=== PATIENT | female | born 1970 | race Caucasian/White ===

== ENCOUNTER 2023-02-26 19:12 | Emergency (ER) | payer OTHER ==
--- NOTE | 2023-02-26 20:15 | ED Physician Documentation ---
History of Present Illness - Stated complaint Stated Complaint: FACIAL NUMBNESS - Chief complaint Chief Complaint: General - History obtained from History obtained from: Patient - Additonal information Additional information: HPI from patient. Patient complains of heaviness across her anterior chest, onset at approximately 6 PM today during light activity (patient was walking into a store).She denies shortness of breath per se, but does note that at its worst (when the chest feels most heavy), she does feel it is difficult to take in a deep breath. At no time was inspiration associated with worsening of the pain. Her chest heaviness has nearly resolved by the time of this evaluation although it is still present, and she longer feels like her breathing is restricted from the heaviness. The chest discomfort/heaviness does not radiate, such as to the neck, back, arms.She did not notice any exacerbating or ameliorating factors for the symptoms; she just has made note of resolution of the symptoms seemingly on their own except, again, for mild, residual chest wall heaviness/pressure. She also had left facial paresthesias ("[id number]") at symptom onset, but this has subsequently resolved.She denies history of similar symptoms. She denies any leg swelling. Denies fever. She has never had a stress test, has never been diagnosed with any cardiac diagnoses. She also notes that she has had 1 to 2 days of urinary frequency and burning with urination. Review of Systems Constitutional: denies: Fever Cardiac: reports: Chest pain / pressure. denies: Palpitations, Pedal edema, Calf pain Respiratory: denies: Dyspnea, Cough, Wheezing GI: reports: Reviewed and negative : reports: Dysuria, Frequency. denies: Hematuria, Now [facility] PAST MEDICAL HISTORY - Past Medical History Past Medical History: No - Present Medications Home Medications: Ambulatory Orders Medication Instructions Recorded Confirmed Nitrofurantoin [Macrobid] 100 mg PO BID #9 cap 02/26/23 Phenazopyridine HCl [Pyridium] 200 mg PO TID PRN #6 tablet 02/26/23 - Allergies Allergies/Adverse Reactions: Allergies Allergy/AdvReac Type Severity Reaction Status Date / Time No Known Drug Allergies Allergy Verified 02/26/23 19:21 - Living Situation Living Arrangement: reports: At home PD ED PE NORMAL - Vitals Vital signs reviewed: Yes - General General: Alert and oriented X 3, No acute distress, Well developed/nourished - Neck Neck: Supple, no meningeal sign - Cardiac Cardiac: RRR, No murmur, No gallop, No rub - Respiratory Respiratory: No respiratory distress, Clear bilaterally - Abdomen Abdomen: Soft, Non tender - Derm Derm: Normal color, Warm and dry - Extremities Extremities: No edema Results - Vitals Vitals: Oxygen O2 Source Room air - EKG (time done) No standard instances EKG releavant findings:: EKG personally interpreted by author of this note. Relevant findings are: Rate: Rate (enter#) (56) Rhythm: NSR [place]: Normal Intervals: Normal IN QRS: Normal Ischemia: Normal ST segments - Labs Labs: Microbiology 02/26/23 20:05 Urine Culture - Preliminary Urine,Clean Catch Escherichia Coli Laboratory Tests 02/26/23 02/26/23 02/26/23 19:29 19:29 19:29 WBC 8.8 RBC 4.80 Hgb 15.5 Hct 44.9 MCV 93.5 MCH 32.3 H MCHC 34.5 RDW 12.2 Plt Count 301 MPV 10.3 Neut # (Auto) 4.2 Lymph # (Auto) 3.8 H [place] # (Auto) 0.6 Eos # (Auto) 0.1 Baso # (Auto) 0.1 Absolute Nucleated RBC 0.00 Nucleated RBC % 0.0 Sodium 137 Potassium 3.5 Chloride 101 Carbon Dioxide 27 Anion Gap 9.0 BUN 13 Creatinine 0.7 Estimated GFR (MDRD) 88 L Glucose 88 Calcium 9.3 Total Bilirubin 0.4 AST 21 ALT 21 Alkaline Phosphatase 77 Troponin I High Sens 3.9 Total Protein 7.6 Albumin 4.5 Globulin 3.1 Albumin/Globulin Ratio 1.5 Lipase 37 Urine Color Urine Clarity Urine pH Ur Specific [place] Urine Protein Urine Glucose (UA) Urine Ketones Urine Occult Blood Urine Nitrite Urine Bilirubin Urine Urobilinogen Ur Leukocyte Esterase Urine RBC Urine WBC Ur Squamous Epith Cells Urine Bacteria Ur Microscopic Review Urine Culture Comments 02/26/23 20:05 WBC RBC Hgb Hct MCV MCH MCHC RDW Plt Count MPV Neut # (Auto) Lymph # (Auto) [place] # (Auto) Eos # (Auto) Baso # (Auto) Absolute Nucleated RBC Nucleated RBC % Sodium Potassium Chloride Carbon Dioxide Anion Gap BUN Creatinine Estimated GFR (MDRD) Glucose Calcium Total Bilirubin AST ALT Alkaline Phosphatase Troponin I High Sens Total Protein Albumin Globulin Albumin/Globulin Ratio Lipase Urine Color STRAW Urine Clarity HAZY Urine pH 6.0 Ur Specific [place] <=1.005 Urine Protein NEGATIVE Urine Glucose (UA) NEGATIVE Urine Ketones NEGATIVE Urine Occult Blood TRACE-INTA Urine Nitrite POSITIVE H Urine Bilirubin NEGATIVE Urine Urobilinogen 0.2 (NORMAL) Ur Leukocyte Esterase SMALL H Urine RBC 0-5 Urine WBC >25 H Ur Squamous Epith Cells RARE Squamous Urine Bacteria Moderate H Ur Microscopic Review INDICATED Urine Culture Comments INDICATED - Rads (name of study) chest xray Relevant Findings:: Prelim report reviewed, See rad report PD Medical Decision Making - ED course Complexity details: reviewed results, re-evaluated patient, considered differential, d/w patient ED course: UA is strongly consistent with UTI, and macrobid is prescribed with first dose given in ED along with pyridium. There were no concerning nor diagnostic findings on the blood tests including hs-cTn, and CXR does not evidence an acute process. Results d/w patient. Cause of her dyspnea, chest heaviness, and facial paresthesias is unclear at this time. Her dysuria and frequency are, of course, attributable to the UTI. I recommended to patient that she seek f/o with PMD within one week to reevaluate all of her symptoms. Return precautions discussed. Departure - Departure Disposition: 01 Home, Self Care Clinical Impression: Urinary tract infection Qualifiers: Urinary tract infection type: acute cystitis Hematuria presence: without hematuria Qualified Code(s): N30.00 - Acute cystitis without hematuria Chest pain Qualifiers: Chest pain type: unspecified Qualified Code(s): R07.9 - Chest pain, unspecified Condition: Good Instructions: ED Chest Pain Atypical Unkn Cause, ED UTI Cystitis Female Prescriptions: Nitrofurantoin [Macrobid] 100 mg PO BID #9 cap Phenazopyridine HCl [Pyridium] 200 mg PO TID PRN #6 tablet PRN Reason: dysuria Comments: There were no abnormalities on tonight's tests, including your blood tests (which included a cardiac enzyme test), chest x-ray, EKG. The only exception is the urinalysis, which is consistent with a urinary tract infection. For this, I have given you a dose of an antibiotic (Macrobid) as well as a dose of Pyridium (medication that can help with the frequency and burning associated with urinary tract infection) in the emergency department. You also been provided a prescription for both these medications. I have only prescribed Pyridium for two days because, as we discussed, the symptoms of a urinary tract infection should significantly improve and then resolve within no more than 2 to 3 days into the antibiotic. A culture will be performed on the urine sample, and if the culture grows out a bacteria that is resistant to the prescribed antibiotic, you will receive a phone call, and an alternative antibiotic can be electronically submitted to your pharmacy of choice. Regarding your chest discomfort; as we discussed, I strongly recommend that you follow-up with your primary care provider, next available appointment. This is for purposes of reevaluation as well as to consider whether further testing, such as a stress test, is indicated. This is at your primary care providers discretion. Discharge Date/Time: 02/26/23 22:01
[2023-02-26 20:20] LABS: BILIRUBIN,URINE NEGATIVE (NEGATIVE); GLUCOSE, URINE (UA) NEGATIVE (NEGATIVE); KETONES,URINE (UA) NEGATIVE (NEGATIVE); LEUKOCYTE ESTERASE, URINE SMALL (NEGATIVE); NITRITE,URINE POSITIVE (NEGATIVE); OCCULT BLOOD,URINE TRACE-INTA (NEGATIVE); PROTEIN,URINE NEGATIVE (NEGATIVE); UROBILINOGEN,URINE 0.2 (NORMAL) E.U./dL (NORMAL)
[2023-02-26 20:21] LABS: CLARITY,URINE HAZY (CLEAR)
[2023-02-26 20:33] LABS: BASOPHILS # (AUTO) 0.1 10^3/uL (0.0-0.1); BASOPHILS % (AUTO) 0.7 %; EOSINOPHILS # (AUTO) 0.1 10^3/uL (0.0-0.7); EOSINOPHILS % (AUTO) 1.4 %; HCT - HEMATOCRIT 44.9 % (37.0-47.0); HGB - HEMOGLOBIN 15.5 g/dL (12.0-16.0); LYMPHOCYTES # (AUTO) 3.8 10^3/uL (1.5-3.5); LYMPHOCYTES % (AUTO) 42.9 %; MEAN CORPUSCULAR HEMOGLOBIN 32.3 pg (27.0-31.0); MEAN CORPUSCULAR HGB CONC 34.5 g/dL (32.0-36.0); MEAN CORPUSCULAR VOLUME 93.5 fL (81.0-99.0); MEAN PLATELET VOLUME 10.3 fL (7.9-10.8); MONOCYTES # (AUTO) 0.6 10^3/uL (0.0-1.0); MONOCYTES % (AUTO) 6.8 %; NEUTROPHILS # (AUTO) 4.2 10^3/uL (1.5-6.6); PLT - PLATELET COUNT 301 10^3/uL (130-450); RED CELL DISTRIBUTION WIDTH 12.2 % (12.0-15.0); WHITE BLOOD COUNT 8.8 x10^3/uL (4.8-10.8)
[2023-02-26 20:40] LABS: BACTERIA,URINE Moderate /HPF (None Seen); RBC,URINE 0-5 /HPF (0-5); SQUAMOUS EPITHELIAL CELL,UR RARE Squamous (<= Few); WBC,URINE >25 /HPF (0-5)
[2023-02-26 20:50] LABS: ALBUMIN 4.5 g/dL (3.2-5.5); ALBUMIN/GLOBULIN RATIO 1.5 (1.0-2.2); BILIRUBIN,TOTAL 0.4 mg/dL (0.2-1.0); CALCIUM 9.3 mg/dL (8.5-10.3); CREATININE 0.7 mg/dL (0.4-1.0); POTASSIUM 3.5 mmol/L (3.5-5.0); TOTAL PROTEIN 7.6 g/dL (6.7-8.2)
[2023-02-26] MEDS ORDERED: NITROFURANTOIN MACRO 100 MG CAPSULE PO STA (21:40)
[2023-02-26] MEDS ORDERED: PHENAZOPYRIDINE 100 MG TABLET PO STA (21:43)
[2023-02-26 22:01] VITALS: BP 105/68
--- NOTE | 2023-02-26 22:08 | XRAY Report ---
PROCEDURE: Chest 2 View X-Ray INDICATIONS: chest pain / heaviness TECHNIQUE: 2 views of the chest were acquired. COMPARISON: None. FINDINGS: Surgical changes and devices: None. Lungs and pleura: No pleural effusions or pneumothorax. Lungs are clear. Mediastinum: Mediastinal contours appear normal. Heart size is normal. Bones and chest wall: No suspicious bony lesions. Overlying soft tissues appear unremarkable. IMPRESSION: 1. No acute cardiopulmonary disease. Reviewed by: Pastor Carranza MD on 02/26/2023 10:07 PM PDT Approved by: Pastor Carranza MD on 02/26/2023 10:07 PM PDT Station ID: [id number]
== END 2023-02-26 22:01 | disposition home or self-care (01) ==
LOC: ED 19:12
DX: N30.00 Acute cystitis without hematuria (principal); R07.9 Chest pain, unspecified
CPT/HCPCS: 36415; 71046; 80053; 81001; 83690; 84484; 85025; 87086; 87181; 93005; 99284; A9270; 81003